=== PATIENT | male | born 1945 | race Caucasian/White ===

== ENCOUNTER 2017-11-27 17:14 | Observation (INO) | payer MEDICARE, OTHER ==
[~2017-11-27] VITALS: Ht 172.7 cm; Wt 77.1 kg
[~2017-11-27 17:14] MED LIST: ALL100T PO; BACL-63 PO; ESCI20TA51 PO; GAB400C PO; LEVE500T22 PO; METH-928 PO; METO-169 PO; OXYB15TA12 PO; PRAV20TA3 PO; SENN-58 PO; WARF3TAB22 PO
[2017-11-27 20:55] LABS: Basophils # (auto) 0.1 uL; Basophils % (auto) 0.7 % (0.0-2.0); Eosinophils # (auto) 0.6 uL; Eosinophils % (auto) 5.9 % (0.0-7.0); Hemoglobin 10.3 g/dL (13.5-17.5); Lymphocytes # (auto) 1.5 uL; Lymphocytes % (auto) 15.1 % (10.0-50.0); Mean Corpuscular Hemoglobin 28.9 pg (28.0-32.0); Mean Corpuscular Hgb Conc. 33.3 g/dL (32.0-36.0); Mean Corpuscular Volume 86.8 fL (80.0-100.0); Monocytes # (auto) 0.7 uL; Monocytes % (auto) 6.8 % (0.0-12.0); Neutrophils # (auto) 6.9 uL; Neutrophils % (auto) 71.5 % (37.0-80.0); Platelet Count (auto) 193 10^3/uL (140-450); Red Blood Cells 3.57 10^6/uL (4.5-5.90); Red Cell Distribution Width 16.6 % (11.8-14.3); White Blood Cell 9.6 10^3/uL (4.4-10.8)
[2017-11-27 21:03] LABS: INR 2.07 (0.9-1.15); Partial Thromboplastin Time 45.4 sec (22.64-33.71); Prothrombin Time 22.7 sec (9.37-12.3)
[2017-11-27 21:10] LABS: Albumin 2.3 g/dL (3.4-5.0); BUN/Creatinine Ratio 18.7; Bilirubin, Total 0.3 mg/dL (0.2-1.0); Calcium 8.3 mg/dL (8.5-10.1); Magnesium 2.3 mg/dL (1.6-2.6); Total Protein 6.3 g/dL (6.4-8.2)
[2017-11-27 21:23] LABS: Potassium 2.9 mmol/L (3.5-5.1)
[2017-11-27] MEDS ORDERED: POTASSIUM CHL 10% (20 MEQ/15ML) 15ml ORAL SOLN GT ONE (21:30)
[2017-11-27] MEDS ORDERED: SODIUM CHLORIDE 0.9% 1,000 ML IV ONE (21:30)
[2017-11-28 00:15] VITALS: BP 100/63
== END 2017-11-28 00:27 | disposition home or self-care (01) | DRG 310 ==
LOC: EDBD 17:14 → ER 17:19 → OVERFLOW 20:27 → ER 11-28 00:27
PROVIDERS: ADMIT Family Medicine; ATTEND Family Medicine
DX: I48.2 Chronic atrial fibrillation (principal); I11.0 Hypertensive heart disease with heart failure; I50.9 Heart failure, unspecified; E78.5 Hyperlipidemia, unspecified; E11.9 Type 2 diabetes mellitus without complications; E87.6 Hypokalemia; D64.9 Anemia, unspecified; M79.605 Pain in left leg; Z86.73 Personal history of transient ischemic attack (TIA), and cerebral infarction without residual deficits; F41.9 Anxiety disorder, unspecified; F32.9 Major depressive disorder, single episode, unspecified; Z87.440 Personal history of urinary (tract) infections
CPT/HCPCS: 36415; 72192; 73562; 80053; 83735; 85025; 85610; 85730; 93005; 93971; 96360; 99285; G0378; J7030

== ENCOUNTER 2018-04-28 09:54 | Inpatient (IN) | payer MEDICARE, OTHER ==
[~2018-04-28] VITALS: Ht 172.7 cm; Wt 77.3 kg
[2018-04-28] MEDS ORDERED: SODIUM CHLORIDE 0.9% 1,000 ML IV ONE ×2 (10:00→12:45)
[2018-04-28] MEDS: SODIUM CHLORIDE 0.9% 1,000 ML IV ONE (10:03)
[2018-04-28] MEDS ORDERED: cefTRIAXone 1GM/10ml IVPUSH 10 ML IV ONE (10:15)
[2018-04-28 10:38] LABS: Basophils # (auto) 0.1 uL; Basophils % (auto) 0.3 % (0.0-2.0); Eosinophils # (auto) 0 uL; Hematocrit 38.2 % (41.0-53.0); Hemoglobin 12.1 g/dL (13.5-17.5); Lymphocytes % (auto) 5.1 % (10.0-50.0); Mean Corpuscular Hemoglobin 27.4 pg (28.0-32.0); Mean Corpuscular Hgb Conc. 31.8 g/dL (32.0-36.0); Mean Corpuscular Volume 86.1 fL (80.0-100.0); Monocytes # (auto) 1.2 uL; Neutrophils # (auto) 17.4 uL; Neutrophils % (auto) 88.6 % (37.0-80.0); Platelet Count (auto) 147 10^3/uL (140-450); Red Blood Cells 4.44 10^6/uL (4.5-5.90); Red Cell Distribution Width 16.3 % (11.8-14.3); White Blood Cell 19.6 10^3/uL (4.4-10.8)
[2018-04-28 10:58] LABS: Lactic Acid w/Reflex 2.3 mmol/L (0.4-2.0)
[2018-04-28 11:04] LABS: INR 1.53 (0.9-1.15)
[2018-04-28 11:07] LABS: Albumin 2.4 g/dL (3.4-5.0); BUN/Creatinine Ratio 12.6; Bilirubin, Total 0.9 mg/dL (0.2-1.0); Calcium 8.1 mg/dL (8.5-10.1); Total Protein 6.1 g/dL (6.4-8.2)
[2018-04-28 11:09] LABS: Potassium 2.7 mmol/L (3.5-5.1)
[2018-04-28] MEDS: POTASSIUM CHL 20MEQ/100ML 100 ML IV SCH ×3 (11:55→15:47)
[2018-04-28 12:44] LABS: Urine Blood 1+ /uL (Negative); Urine Mucus MANY (None Seen); Urine WBC 17516 /hpf (0 - 3)
[2018-04-28] MEDS ORDERED: NITROGLYCERIN 0.4 MG SL TAB SL PRN (12:45)
[2018-04-28] MEDS ORDERED: MORPHINE SULF INJ 2 MG/ML SYRINGE 1ML IV PRN (12:45)
[2018-04-28 12:47] LABS: Urine Bacteria MOD /hpf (None Seen); Urine Specific Gravity 1.018 (1.001-1.035)
[2018-04-28 13:06] LABS: Alcohol, Urine < 3.0 mg/dL (0-5); Amphetamine Screen, Urine NEGATIVE (NEGATIVE); Barbiturate Scree,Urine NEGATIVE (NEGATIVE); Benzodiazephine Screen, Urine NEGATIVE (NEGATIVE); Cannabinoid Screen, Urine NEGATIVE (NEGATIVE); Cocaine Screen, Urine NEGATIVE (NEGATIVE); Opiate Scree,Urine POSITIVE (NEGATIVE); Phencyclidine Screen, Urine NEGATIVE (NEGATIVE)
[2018-04-28] MEDS: ENOXAPARIN SOD 30 MG/0.3 ML SYRINGE SC SCH (13:20)
[2018-04-28] MEDS ORDERED: NOREPINEPHRINE 8 MG/250ML KIT 250 ML IV ONE (14:19)
[2018-04-28] MEDS: NOREPINEPHRINE 8 MG/250ML KIT 250 ML IV SCH (14:21)
[2018-04-28] MEDS ORDERED: VANCOMYCIN PER PHARMACY 0 MG IV SCH (14:45)
[2018-04-28] MEDS ORDERED: SODIUM CHLORIDE 0.9% 1,000 ML IV SCH (14:45)
[2018-04-28] MEDS: PIPERACILLIN-TAZOB 2.25GM 50 ML IV SCH ×2 (15:47→21:53)
[2018-04-28] MEDS ORDERED: VANCOMYCIN 1GM/250ML 250 ML IV SCH (16:00)
[2018-04-28] MEDS ORDERED: FUROSEMIDE 20 MG/2 ML VIAL IV ONE (16:15)
[2018-04-28] MEDS ORDERED: ACETAMINOPHEN 650 MG RECT SUPP PR ONE ×2 (18:00→21:45)
[2018-04-28] MEDS ORDERED: PIPERACILLIN-TAZOB 2.25GM 50 ML IV SCH (18:00)
[2018-04-28 20:13] LABS: Protein, Urine 502.1 mg/dL (0.0-11.9)
[2018-04-28 23:00] VITALS: BP 126/72
[2018-04-29] MEDS: PIPERACILLIN-TAZOB 2.25GM 50 ML IV SCH ×4 (03:20→21:20)
[2018-04-29] MEDS: IPRATROPIUM BROM 0.5 MG/2.5ML INH SOL NEB SCH ×4 (07:31→17:39)
[2018-04-29] MEDS: ALBUTEROL SULF 2.5 MG/0.5ML(0.5%) NEB SOLN NEB SCH ×4 (07:31→17:39)
[2018-04-29 07:59] LABS: Basophils # (auto) 0 uL; Basophils % (auto) 0.2 % (0.0-2.0); Eosinophils # (auto) 0 uL; Eosinophils % (auto) 0.1 % (0.0-7.0); Hematocrit 38.4 % (41.0-53.0); Hemoglobin 12.2 g/dL (13.5-17.5); Lymphocytes # (auto) 0.9 uL; Lymphocytes % (auto) 3.9 % (10.0-50.0); Mean Corpuscular Hemoglobin 27.3 pg (28.0-32.0); Mean Corpuscular Hgb Conc. 31.7 g/dL (32.0-36.0); Mean Corpuscular Volume 86.3 fL (80.0-100.0); Monocytes # (auto) 0.7 uL; Monocytes % (auto) 3.1 % (0.0-12.0); Neutrophils # (auto) 21.9 uL; Neutrophils % (auto) 92.7 % (37.0-80.0); Platelet Count (auto) 142 10^3/uL (140-450); Red Blood Cells 4.45 10^6/uL (4.5-5.90); Red Cell Distribution Width 17.2 % (11.8-14.3); White Blood Cell 23.6 10^3/uL (4.4-10.8)
[2018-04-29 08:18] LABS: Phosphorus 3.4 mg/dL (2.5-4.90)
[2018-04-29 08:19] LABS: Albumin 2.5 g/dL (3.4-5.0); BUN/Creatinine Ratio 14.7; Bilirubin, Total 1.2 mg/dL (0.2-1.0); Calcium 8.2 mg/dL (8.5-10.1); Potassium 3.3 mmol/L (3.5-5.1); Total Protein 6.3 g/dL (6.4-8.2)
[2018-04-29] MEDS ORDERED: ENOXAPARIN SOD 40 MG/0.4 ML SYRINGE SC SCH (10:00)
[2018-04-29] MEDS: ENOXAPARIN SOD 30 MG/0.3 ML SYRINGE SC SCH (11:12)
[2018-04-29] MEDS: PANTOPRAZOLE 40 MG/10 ML VIAL IV SCH (11:12)
[2018-04-29] MEDS: SOD CHL 0.45% WITH 20MEQ KCL 1,000 ML IV SCH (13:41)
[2018-04-29] MEDS: NOREPINEPHRINE 8 MG/250ML KIT 250 ML IV SCH (14:30)
[2018-04-30] MEDS: SOD CHL 0.45% WITH 20MEQ KCL 1,000 ML IV SCH ×2 (01:48→10:54)
[2018-04-30] MEDS: PIPERACILLIN-TAZOB 2.25GM 50 ML IV SCH (02:22)
[2018-04-30 04:00] VITALS: BP 110/90
[2018-04-30 04:15] VITALS: BP 110/90
[2018-04-30] MEDS: ALBUTEROL SULF 2.5 MG/0.5ML(0.5%) NEB SOLN NEB SCH ×4 (06:23→19:21)
[2018-04-30] MEDS: IPRATROPIUM BROM 0.5 MG/2.5ML INH SOL NEB SCH ×4 (06:23→19:21)
[2018-04-30 08:00] VITALS: BP 104/73
[2018-04-30 08:09] LABS: Albumin 2.5 g/dL (3.4-5.0); BUN/Creatinine Ratio 18.6; Calcium 8.4 mg/dL (8.5-10.1); Total Protein 6.7 g/dL (6.4-8.2)
[2018-04-30 08:12] LABS: Potassium 2.9 mmol/L (3.5-5.1)
[2018-04-30 08:48] LABS: Basophils # (auto) 0.1 uL; Basophils % (auto) 0.5 % (0.0-2.0); Eosinophils # (auto) 0.3 uL; Eosinophils % (auto) 1.9 % (0.0-7.0); Hematocrit 38.5 % (41.0-53.0); Hemoglobin 12.4 g/dL (13.5-17.5); Lymphocytes # (auto) 0.7 uL; Lymphocytes % (auto) 5.3 % (10.0-50.0); Mean Corpuscular Hemoglobin 28.3 pg (28.0-32.0); Mean Corpuscular Hgb Conc. 32.2 g/dL (32.0-36.0); Monocytes # (auto) 0.8 uL; Monocytes % (auto) 5.7 % (0.0-12.0); Neutrophils # (auto) 12.2 uL; Neutrophils % (auto) 86.6 % (37.0-80.0); Platelet Count (auto) 111 10^3/uL (140-450); Red Blood Cells 4.37 10^6/uL (4.5-5.90); Red Cell Distribution Width 17.4 % (11.8-14.3); White Blood Cell 14.1 10^3/uL (4.4-10.8)
[2018-04-30] MEDS ORDERED: MEROPENEM 1gm/20ml IVPUSH 20 ML IV ONE (10:15)
[2018-04-30] MEDS: PANTOPRAZOLE 40 MG/10 ML VIAL IV SCH (10:53)
[2018-04-30] MEDS: ENOXAPARIN SOD 30 MG/0.3 ML SYRINGE SC SCH (10:53)
[2018-04-30] MEDS: POTASSIUM CHL 20MEQ/100ML 100 ML IV SCH ×2 (10:53→12:34)
[2018-04-30 11:50] VITALS: BP 120/87
[2018-04-30] MEDS ORDERED: METOPROLOL TARTRATE 1MG/1ML-5ML VIAL IV ONE (12:30)
[2018-04-30] MEDS ORDERED: MEROPENEM 1gm/20ml IVPUSH 20 ML IV SCH (14:00)
[2018-04-30] MEDS ORDERED: LIDOCAINE 1% (LOCAL ANESTH.) PF 5ml SDV ID ONE (15:30)
[2018-04-30 15:50] VITALS: BP 128/83
[2018-04-30] MEDS: METOPROLOL TARTRATE 1MG/1ML-5ML VIAL IV SCH (17:18)
[2018-04-30 19:53] VITALS: BP 108/65
[2018-04-30] MEDS: MEROPENEM 1gm/20ml IVPUSH 20 ML IV SCH (22:00)
[2018-04-30] MEDS: SODIUM CHLOR 0.9% PF (SALINE LOCK) 10ML VIAL/SYR IV SCH (22:00)
[2018-05-01] VITALS: BP 102/68
[2018-05-01] MEDS: SOD CHL 0.45% WITH 20MEQ KCL 1,000 ML IV SCH (01:54)
[2018-05-01 04:00] VITALS: BP 126/70
[2018-05-01] MEDS: METOPROLOL TARTRATE 1MG/1ML-5ML VIAL IV SCH ×4 (05:34→18:39)
[2018-05-01 05:50] LABS: Basophils # (auto) 0 uL; Basophils % (auto) 0.4 % (0.0-2.0); Eosinophils # (auto) 0.1 uL; Eosinophils % (auto) 0.5 % (0.0-7.0); Hematocrit 33.2 % (41.0-53.0); Hemoglobin 10.9 g/dL (13.5-17.5); Lymphocytes # (auto) 0.8 uL; Mean Corpuscular Hemoglobin 28.6 pg (28.0-32.0); Mean Corpuscular Hgb Conc. 32.9 g/dL (32.0-36.0); Mean Corpuscular Volume 87.1 fL (80.0-100.0); Monocytes # (auto) 0.6 uL; Neutrophils # (auto) 11.4 uL; Neutrophils % (auto) 88.1 % (37.0-80.0); Nucleated Red Blood Cells % 0.1 %; Platelet Count (auto) 116 10^3/uL (140-450); Red Blood Cells 3.81 10^6/uL (4.5-5.90); Red Cell Distribution Width 16.8 % (11.8-14.3); White Blood Cell 12.9 10^3/uL (4.4-10.8)
[2018-05-01] MEDS: ALBUTEROL SULF 2.5 MG/0.5ML(0.5%) NEB SOLN NEB SCH ×4 (05:53→19:38)
[2018-05-01] MEDS: IPRATROPIUM BROM 0.5 MG/2.5ML INH SOL NEB SCH ×4 (05:53→19:39)
[2018-05-01 06:10] LABS: Albumin 2.3 g/dL (3.4-5.0); Calcium 8.5 mg/dL (8.5-10.1); Potassium 3.3 mmol/L (3.5-5.1)
[2018-05-01 06:12] LABS: BUN/Creatinine Ratio 23.5
[2018-05-01 06:14] LABS: Total Protein 6.1 g/dL (6.4-8.2)
[2018-05-01] MEDS: MEROPENEM 1gm/20ml IVPUSH 20 ML IV SCH ×2 (10:01→22:10)
[2018-05-01] MEDS: ENOXAPARIN SOD 30 MG/0.3 ML SYRINGE SC SCH (10:02)
[2018-05-01] MEDS: PANTOPRAZOLE 40 MG/10 ML VIAL IV SCH (10:02)
[2018-05-01] MEDS: SODIUM CHLOR 0.9% PF (SALINE LOCK) 10ML VIAL/SYR IV SCH ×2 (10:03→22:10)
[2018-05-01 12:00] VITALS: BP 124/71
[2018-05-01] MEDS ORDERED: D5W/SOD CHL 0.45% 1,000 ML IV SCH (12:00)
[2018-05-01] MEDS ORDERED: POTASSIUM CHL 20 Meq TABLET PO ONE (13:30)
[2018-05-01 16:00] VITALS: BP 120/72
[2018-05-01] MEDS: POTASSIUM CHL 20MEQ/100ML 100 ML IV SCH ×2 (16:58→19:29)
[2018-05-01] MEDS: D5W/SOD CHL 0.45%/KCL 20MEQ 1,000 ML IV SCH ×2 (16:59→22:11)
[2018-05-01 19:46] VITALS: BP 118/72
[2018-05-02] VITALS (7 sets, daily range): BP systolic 91–144; BP diastolic 61–98
[2018-05-02] MEDS: METOPROLOL TARTRATE 1MG/1ML-5ML VIAL IV SCH ×5 (00:46→18:00)
[2018-05-02] MEDS: D5W/SOD CHL 0.45%/KCL 20MEQ 1,000 ML IV SCH (05:51)
[2018-05-02 06:10] LABS: Basophils # (auto) 0.1 uL; Basophils % (auto) 0.6 % (0.0-2.0); Eosinophils # (auto) 0.1 uL; Eosinophils % (auto) 1.3 % (0.0-7.0); Hematocrit 33.8 % (41.0-53.0); Hemoglobin 11.3 g/dL (13.5-17.5); Lymphocytes # (auto) 0.8 uL; Lymphocytes % (auto) 7.3 % (10.0-50.0); Mean Corpuscular Hemoglobin 28.6 pg (28.0-32.0); Mean Corpuscular Hgb Conc. 33.4 g/dL (32.0-36.0); Mean Corpuscular Volume 85.6 fL (80.0-100.0); Monocytes # (auto) 0.7 uL; Monocytes % (auto) 6.9 % (0.0-12.0); Neutrophils # (auto) 8.9 uL; Neutrophils % (auto) 83.9 % (37.0-80.0); Nucleated Red Blood Cells % 0.1 %; Platelet Count (auto) 107 10^3/uL (140-450); Red Blood Cells 3.95 10^6/uL (4.5-5.90); Red Cell Distribution Width 16.9 % (11.8-14.3); White Blood Cell 10.6 10^3/uL (4.4-10.8)
[2018-05-02] MEDS: IPRATROPIUM BROM 0.5 MG/2.5ML INH SOL NEB SCH ×4 (06:27→20:06)
[2018-05-02] MEDS: ALBUTEROL SULF 2.5 MG/0.5ML(0.5%) NEB SOLN NEB SCH ×4 (06:27→20:08)
[2018-05-02 06:31] LABS: Albumin 2.3 g/dL (3.4-5.0); Calcium 8.5 mg/dL (8.5-10.1)
[2018-05-02] MEDS ORDERED: VANCOMYCIN PER PHARMACY 0 MG IV SCH (10:00)
[2018-05-02] MEDS: PANTOPRAZOLE 40 MG/10 ML VIAL IV SCH (10:03)
[2018-05-02] MEDS: ENOXAPARIN SOD 30 MG/0.3 ML SYRINGE SC SCH (10:03)
[2018-05-02] MEDS: MEROPENEM 1gm/20ml IVPUSH 20 ML IV SCH ×2 (10:03→21:51)
[2018-05-02] MEDS: SODIUM CHLOR 0.9% PF (SALINE LOCK) 10ML VIAL/SYR IV SCH ×2 (10:03→21:29)
[2018-05-02] MEDS ORDERED: VANCOMYCIN 1GM/250ML 250 ML IV ONE (11:00)
[2018-05-02] MEDS: SOD CHL 0.45% 1,000 ML IV SCH ×2 (11:31→21:30)
[2018-05-02] MEDS ORDERED: PPN PER PHARMACY 0 ML IV SCH (17:45)
[2018-05-02] MEDS ORDERED: DEXTROSE (50%) 50ML SYRG IV SCH (18:00)
[2018-05-02] MEDS ORDERED: ACCU-CHEK COMFORT CURVE STRIP VI SCH (18:00)
[2018-05-02] MEDS ORDERED: InsuLIN REG 1unit/0.01ml Soln (100units/ml) SC SCH (18:00)
[2018-05-02 18:38] LABS: Magnesium 1.7 mg/dL (1.6-2.6); Phosphorus 2.5 mg/dL (2.5-4.90)
[2018-05-02] MEDS: CLINIMIX PER PHARMACY IV NR ×2 (19:34→23:00)
[2018-05-02] MEDS: ACCU-CHEK COMFORT CURVE STRIP VI SCH (19:34)
[2018-05-02] MEDS: InsuLIN REG 1unit/0.01ml Soln (100units/ml) SC SCH (20:00)
[2018-05-03] VITALS: BP 138/85
[2018-05-03] MEDS: METOPROLOL TARTRATE 1MG/1ML-5ML VIAL IV SCH ×2 (00:08→05:48)
[2018-05-03] MEDS: ACCU-CHEK COMFORT CURVE STRIP VI SCH ×4 (00:08→17:09)
[2018-05-03 04:00] VITALS: BP 119/73
[2018-05-03 05:29] LABS: Basophils # (auto) 0.1 uL; Eosinophils # (auto) 0.4 uL; Eosinophils % (auto) 4.5 % (0.0-7.0); Hematocrit 34.9 % (41.0-53.0); Hemoglobin 11.4 g/dL (13.5-17.5); Lymphocytes # (auto) 1.1 uL; Lymphocytes % (auto) 11.2 % (10.0-50.0); Mean Corpuscular Hemoglobin 28.1 pg (28.0-32.0); Mean Corpuscular Hgb Conc. 32.8 g/dL (32.0-36.0); Mean Corpuscular Volume 85.8 fL (80.0-100.0); Monocytes # (auto) 0.8 uL; Neutrophils # (auto) 7.3 uL; Neutrophils % (auto) 75.3 % (37.0-80.0); Platelet Count (auto) 119 10^3/uL (140-450); Red Blood Cells 4.07 10^6/uL (4.5-5.90); Red Cell Distribution Width 16.8 % (11.8-14.3); White Blood Cell 9.7 10^3/uL (4.4-10.8)
[2018-05-03 05:52] LABS: Albumin 2.3 g/dL (3.4-5.0); BUN/Creatinine Ratio 22.2; Calcium 8.5 mg/dL (8.5-10.1); Magnesium 1.9 mg/dL (1.6-2.6); Phosphorus 1.7 mg/dL (2.5-4.90); Potassium 3.4 mmol/L (3.5-5.1); Pre Albumin 5.6 mg/dL (20.0-40.0)
[2018-05-03] MEDS: InsuLIN REG 1unit/0.01ml Soln (100units/ml) SC SCH ×4 (05:52→23:49)
[2018-05-03] MEDS: IPRATROPIUM BROM 0.5 MG/2.5ML INH SOL NEB SCH ×4 (06:18→18:19)
[2018-05-03] MEDS: ALBUTEROL SULF 2.5 MG/0.5ML(0.5%) NEB SOLN NEB SCH ×4 (06:18→18:19)
[2018-05-03 08:00] VITALS: BP 130/73
[2018-05-03] MEDS ORDERED: BISACODYL 10 MG RECT SUPP PR ONE (10:00)
[2018-05-03] MEDS: ENOXAPARIN SOD 30 MG/0.3 ML SYRINGE SC SCH (10:29)
[2018-05-03] MEDS: MEROPENEM 1gm/20ml IVPUSH 20 ML IV SCH (10:29)
[2018-05-03] MEDS: SODIUM CHLOR 0.9% PF (SALINE LOCK) 10ML VIAL/SYR IV SCH ×2 (10:29→22:00)
[2018-05-03] MEDS: PANTOPRAZOLE 40 MG/10 ML VIAL IV SCH (10:29)
[2018-05-03] MEDS ORDERED: METOPROLOL SUCCINATE XL 50 MG TAB PO ONE (11:00)
[2018-05-03] MEDS ORDERED: DIGOXIN (250MCG/ML) 2 ML AMPULE IV ONE (11:00)
[2018-05-03] MEDS ORDERED: AMIODARONE HCL 200 MG TAB PO ONE (11:00)
[2018-05-03 11:53] VITALS: BP 115/77
[2018-05-03] MEDS ORDERED: POTASSIUM PHOSPHATE 44 MEQ in D5W 5% 250 ML IV ONE (13:00)
[2018-05-03] MEDS: SOD CHL 0.45% 1,000 ML IV SCH (13:05)
[2018-05-03 15:48] VITALS: BP 111/78
[2018-05-03] MEDS ORDERED: InsuLIN REG 1unit/0.01ml Soln (100units/ml) SC SCH (18:00)
[2018-05-03 19:42] VITALS: BP 105/72
[2018-05-03] MEDS: MEROPENEM 1GM IVPB 100 ML IV SCH (22:15)
[2018-05-03] MEDS: AMIODARONE HCL 200 MG TAB PO SCH (22:19)
[2018-05-03] MEDS: METOPROLOL SUCCINATE XL 50 MG TAB PO SCH (22:26)
[2018-05-03] MEDS ORDERED: VANCOMYCIN 1GM/250ML 250 ML IV SCH (23:00)
[2018-05-04] VITALS (8 sets, daily range): BP systolic 99–121; BP diastolic 60–77
[2018-05-04] MEDS ORDERED: PPN PER PHARMACY 0 ML IV SCH (00:30)
[2018-05-04] MEDS ORDERED: AMINO ACID INFUSION IN D10W 1,000 ML IV NR (00:30)
[2018-05-04] MEDS: SOD CHL 0.45% 1,000 ML IV SCH ×2 (02:15→16:44)
[2018-05-04] MEDS: ALBUTEROL SULF 2.5 MG/0.5ML(0.5%) NEB SOLN NEB SCH ×4 (05:54→18:36)
[2018-05-04] MEDS: IPRATROPIUM BROM 0.5 MG/2.5ML INH SOL NEB SCH ×4 (05:54→18:36)
[2018-05-04] MEDS: ACCU-CHEK COMFORT CURVE STRIP VI SCH ×4 (06:00→18:03)
[2018-05-04] MEDS: InsuLIN REG 1unit/0.01ml Soln (100units/ml) SC SCH ×3 (06:00→18:00)
[2018-05-04 06:07] LABS: Albumin 2.2 g/dL (3.4-5.0); BUN/Creatinine Ratio 27.5; Bilirubin, Total 0.7 mg/dL (0.2-1.0); Calcium 7.9 mg/dL (8.5-10.1); Magnesium 1.6 mg/dL (1.6-2.6); Phosphorus 1.9 mg/dL (2.5-4.90); Total Protein 5.8 g/dL (6.4-8.2)
[2018-05-04 06:11] LABS: Potassium 2.9 mmol/L (3.5-5.1)
[2018-05-04 07:42] LABS: Basophils # (auto) 0 uL; Basophils % (auto) 0.3 % (0.0-2.0); Eosinophils # (auto) 0.6 uL; Hematocrit 33.3 % (41.0-53.0); Hemoglobin 10.8 g/dL (13.5-17.5); Lymphocytes # (auto) 1.2 uL; Mean Corpuscular Hgb Conc. 32.5 g/dL (32.0-36.0); Mean Corpuscular Volume 86.2 fL (80.0-100.0); Monocytes # (auto) 1.1 uL; Neutrophils # (auto) 9.2 uL; Neutrophils % (auto) 75.7 % (37.0-80.0); Platelet Count (auto) 157 10^3/uL (140-450); Red Blood Cells 3.86 10^6/uL (4.5-5.90); Red Cell Distribution Width 16.9 % (11.8-14.3); White Blood Cell 12.1 10^3/uL (4.4-10.8)
[2018-05-04 07:55] LABS: Pre Albumin 7.1 mg/dL (20.0-40.0)
[2018-05-04] MEDS: MEROPENEM 1GM IVPB 100 ML IV SCH ×2 (09:36→21:02)
[2018-05-04] MEDS: PANTOPRAZOLE 40 MG/10 ML VIAL IV SCH (09:37)
[2018-05-04] MEDS: SODIUM CHLOR 0.9% PF (SALINE LOCK) 10ML VIAL/SYR IV SCH ×2 (09:37→21:07)
[2018-05-04] MEDS: POTASSIUM CHL 20MEQ/100ML 100 ML IV SCH ×3 (09:48→14:55)
[2018-05-04] MEDS ORDERED: POTASSIUM CHL 20MEQ/100ML 100 ML IV SCH (10:45)
[2018-05-04] MEDS: ENOXAPARIN SOD 40 MG/0.4 ML SYRINGE SC SCH (11:40)
[2018-05-04] MEDS: METOPROLOL SUCCINATE XL 50 MG TAB PO SCH ×2 (11:40→21:06)
[2018-05-04] MEDS: AMIODARONE HCL 200 MG TAB PO SCH ×2 (11:41→21:02)
[2018-05-04] MEDS ORDERED: TPN PER PHARMACY 0 ML IV SCH (12:15)
[2018-05-04] MEDS ORDERED: MAGNESIUM SULFATE 1GM/100ML 100 ML IV ONE (14:00)
[2018-05-04] MEDS ORDERED: POTASSIUM PHOSP 26.4MEQ(18MMOL) IN NS 100 ML IV ONE (14:00)
[2018-05-04] MEDS ORDERED: POTASSIUM ACETATE IV NR ×10 (20:00)
[2018-05-04] MEDS ORDERED: FAT EMULSION IV NR ×10 (20:00)
[2018-05-04] MEDS ORDERED: SODIUM ACETATE IV NR ×10 (20:00)
[2018-05-04] MEDS ORDERED: [UNRECOGNIZED DRUG - OTHER] IV NR ×10 (20:00)
[2018-05-04] MEDS: VANCOMYCIN 1GM/250ML 250 ML IV SCH (21:01)
[2018-05-05] VITALS (7 sets, daily range): BP systolic 99–143; BP diastolic 58–99
[2018-05-05] MEDS: ACCU-CHEK COMFORT CURVE STRIP VI SCH ×3 (00:28→12:35)
[2018-05-05] MEDS: TEMAZEPAM 15 MG CAP PO PRN (01:57)
[2018-05-05 05:38] LABS: Hematocrit 27.8 % (41.0-53.0); Hemoglobin 9.1 g/dL (13.5-17.5); Mean Corpuscular Hgb Conc. 32.7 g/dL (32.0-36.0); Mean Corpuscular Volume 85.8 fL (80.0-100.0); Platelet Count (auto) 149 10^3/uL (140-450); Red Blood Cells 3.24 10^6/uL (4.5-5.90); Red Cell Distribution Width 16.3 % (11.8-14.3); White Blood Cell 14.8 10^3/uL (4.4-10.8)
[2018-05-05 05:40] LABS: Band Neutrophils % (manual) 0; Basophils % (manual) 0 (0.0-2.0); Blast Cells 0; Metamyelocytes % 0; Myelocytes % 0; Promyelocytes % 0; Reactive Lymphocytes 0
[2018-05-05] MEDS: InsuLIN REG 1unit/0.01ml Soln (100units/ml) SC SCH ×3 (06:00→12:59)
[2018-05-05 06:01] LABS: Eosinophils % (manual) 1 (0-7); Lymphocytes % (manual) 10 (10.0-50.0); Monocytes % (manual) 9 (0-12)
[2018-05-05 06:02] LABS: Magnesium 1.6 mg/dL (1.6-2.6); Phosphorus 1.9 mg/dL (2.5-4.90)
[2018-05-05] MEDS: IPRATROPIUM BROM 0.5 MG/2.5ML INH SOL NEB SCH ×4 (06:05→18:45)
[2018-05-05] MEDS: ALBUTEROL SULF 2.5 MG/0.5ML(0.5%) NEB SOLN NEB SCH ×4 (06:05→18:45)
[2018-05-05 06:06] LABS: BUN/Creatinine Ratio 34.5; Calcium 7.1 mg/dL (8.5-10.1); Potassium 3.3 mmol/L (3.5-5.1)
[2018-05-05 06:09] LABS: Bilirubin, Total 0.6 mg/dL (0.2-1.0); Total Protein 5.2 g/dL (6.4-8.2)
[2018-05-05] MEDS: SOD CHL 0.45% 1,000 ML IV SCH ×3 (06:35→21:30)
[2018-05-05] MEDS ORDERED: POTASSIUM PHOSPHATE 44 MEQ in D5W 5% 250 ML IV ONE (09:15)
[2018-05-05] MEDS ORDERED: MAGNESIUM SULFATE 1GM/100ML 100 ML IV ONE (09:15)
[2018-05-05] MEDS ORDERED: POTASSIUM CHL 20MEQ/100ML 100 ML IV ONE (09:15)
[2018-05-05] MEDS: MEROPENEM 1GM IVPB 100 ML IV SCH ×2 (09:49→22:12)
[2018-05-05] MEDS: SODIUM CHLOR 0.9% PF (SALINE LOCK) 10ML VIAL/SYR IV SCH ×2 (09:50→22:12)
[2018-05-05] MEDS: PANTOPRAZOLE 40 MG/10 ML VIAL IV SCH (09:50)
[2018-05-05] MEDS: AMIODARONE HCL 200 MG TAB PO SCH ×2 (09:50→22:12)
[2018-05-05] MEDS: ENOXAPARIN SOD 40 MG/0.4 ML SYRINGE SC SCH (09:51)
[2018-05-05] MEDS: METOPROLOL SUCCINATE XL 50 MG TAB PO SCH ×2 (09:51→22:13)
[2018-05-05] MEDS ORDERED: ALB5IS NEB (11:17)
[2018-05-05] MEDS ORDERED: MER500PBAE IV (11:17)
[2018-05-05] MEDS ORDERED: FUROSEMIDE 40 MG/4 ML VIAL ONE (15:43)
[2018-05-05] MEDS ORDERED: TPN PER PHARMACY IV NR ×10 (20:00)
[2018-05-05] MEDS: VANCOMYCIN 1GM/250ML 250 ML IV SCH (21:00)
[2018-05-06] MEDS: TEMAZEPAM 15 MG CAP PO PRN ×2 (00:16→23:24)
[2018-05-06 05:00] VITALS: BP 114/55
[2018-05-06 05:21] LABS: Basophils # (auto) 0.1 uL; Eosinophils # (auto) 0.3 uL; Hemoglobin 8.1 g/dL (13.5-17.5); White Blood Cell 15.1 10^3/uL (4.4-10.8)
[2018-05-06 05:22] LABS: Basophils % (auto) 0.4 % (0.0-2.0); Hematocrit 24.4 % (41.0-53.0); Lymphocytes % (auto) 13.1 % (10.0-50.0); Mean Corpuscular Volume 84.8 fL (80.0-100.0); Monocytes # (auto) 1.6 uL; Monocytes % (auto) 10.5 % (0.0-12.0); Neutrophils # (auto) 11.1 uL; Platelet Count (auto) 166 10^3/uL (140-450); Red Blood Cells 2.87 10^6/uL (4.5-5.90); Red Cell Distribution Width 16.3 % (11.8-14.3)
[2018-05-06] MEDS: ALBUTEROL SULF 2.5 MG/0.5ML(0.5%) NEB SOLN NEB SCH ×4 (07:00→18:43)
[2018-05-06] MEDS: IPRATROPIUM BROM 0.5 MG/2.5ML INH SOL NEB SCH ×4 (07:00→18:43)
[2018-05-06 09:00] VITALS: BP 122/89
[2018-05-06] MEDS: PANTOPRAZOLE 40 MG/10 ML VIAL IV SCH (10:00)
[2018-05-06] MEDS: METOPROLOL SUCCINATE XL 50 MG TAB PO SCH ×2 (10:00→21:53)
[2018-05-06] MEDS: AMIODARONE HCL 200 MG TAB PO SCH ×2 (10:00→21:52)
[2018-05-06] MEDS: ENOXAPARIN SOD 40 MG/0.4 ML SYRINGE SC SCH (10:01)
[2018-05-06] MEDS: SODIUM CHLOR 0.9% PF (SALINE LOCK) 10ML VIAL/SYR IV SCH ×2 (10:01→21:53)
[2018-05-06] MEDS: MEROPENEM 1GM IVPB 100 ML IV SCH ×2 (10:02→21:52)
[2018-05-06 13:00] VITALS: BP 128/75
[2018-05-06] MEDS ORDERED: TPN PER PHARMACY 0 ML IV SCH (14:00)
[2018-05-06 15:24] LABS: Urine Bacteria NONE SEEN /hpf (None Seen); Urine Blood 2+ /uL (Negative); Urine Budding Yeast FEW /hpf (None Seen); Urine Mucus FEW (None Seen); Urine Specific Gravity 1.013 (1.001-1.035); Urine WBC 119 /hpf (0 - 3)
[2018-05-06 15:34] LABS: BUN/Creatinine Ratio 26.4; Calcium 7.2 mg/dL (8.5-10.1)
[2018-05-06 15:35] LABS: Magnesium 1.8 mg/dL (1.6-2.6); Phosphorus 2.4 mg/dL (2.5-4.90)
[2018-05-06 15:38] LABS: Potassium 2.8 mmol/L (3.5-5.1)
[2018-05-06] MEDS ORDERED: POTASSIUM PHOSPHATE 44 MEQ in D5W 5% 250 ML IV ONE (15:45)
[2018-05-06] MEDS ORDERED: POTASSIUM CHL 20MEQ/100ML 100 ML IV SCH (15:45)
[2018-05-06 16:50] VITALS: BP 128/85
[2018-05-06] MEDS ORDERED: CLINIMIX PER PHARMACY IV NR ×3 (20:00)
[2018-05-06] MEDS ORDERED: DEXTROSE (50%) 50ML SYRG IV SCH (20:00)
[2018-05-06] MEDS: SOD CHL 0.45% 1,000 ML IV SCH (20:16)
[2018-05-06] MEDS: VANCOMYCIN 1GM/250ML 250 ML IV SCH (20:55)
[2018-05-06 21:33] VITALS: BP 132/68
[2018-05-06] MEDS: ACCU-CHEK COMFORT CURVE STRIP VI SCH (23:24)
[2018-05-06] MEDS: InsuLIN REG 1unit/0.01ml Soln (100units/ml) SC SCH (23:48)
[2018-05-07 04:44] VITALS: BP 139/97
[2018-05-07] MEDS: InsuLIN REG 1unit/0.01ml Soln (100units/ml) SC SCH ×4 (06:00→23:36)
[2018-05-07] MEDS: ACCU-CHEK COMFORT CURVE STRIP VI SCH ×4 (06:09→23:35)
[2018-05-07] MEDS: IPRATROPIUM BROM 0.5 MG/2.5ML INH SOL NEB SCH ×4 (06:51→19:43)
[2018-05-07] MEDS: ALBUTEROL SULF 2.5 MG/0.5ML(0.5%) NEB SOLN NEB SCH ×4 (06:51→19:43)
[2018-05-07 07:36] LABS: Hemoglobin 7.6 g/dL (13.5-17.5)
[2018-05-07 07:40] LABS: Hematocrit 22.4 % (41.0-53.0); Mean Corpuscular Hemoglobin 28.6 pg (28.0-32.0); Mean Corpuscular Hgb Conc. 33.8 g/dL (32.0-36.0); Mean Corpuscular Volume 84.6 fL (80.0-100.0); Platelet Count (auto) 206 10^3/uL (140-450); Red Blood Cells 2.65 10^6/uL (4.5-5.90); Red Cell Distribution Width 16.3 % (11.8-14.3)
[2018-05-07 07:46] LABS: Basophils % (manual) 0 (0.0-2.0); Blast Cells 0; Myelocytes % 0; Promyelocytes % 0; Reactive Lymphocytes 0
[2018-05-07 07:58] LABS: Albumin 2.3 g/dL (3.4-5.0); BUN/Creatinine Ratio 21.4; Bilirubin, Total 0.7 mg/dL (0.2-1.0); Calcium 7.4 mg/dL (8.5-10.1); Magnesium 1.9 mg/dL (1.6-2.6); Phosphorus 3.7 mg/dL (2.5-4.90); Potassium 3.5 mmol/L (3.5-5.1)
[2018-05-07 08:19] LABS: Band Neutrophils % (manual) 1; Eosinophils % (manual) 7 (0-7); Lymphocytes % (manual) 18 (10.0-50.0); Metamyelocytes % 1; Monocytes % (manual) 8 (0-12)
[2018-05-07 09:00] VITALS: BP 133/86
[2018-05-07] MEDS ORDERED: POTASSIUM CHL 20MEQ/100ML 100 ML IV ONE (09:30)
[2018-05-07] MEDS: PANTOPRAZOLE 40 MG/10 ML VIAL IV SCH (10:02)
[2018-05-07] MEDS: ENOXAPARIN SOD 40 MG/0.4 ML SYRINGE SC SCH (10:03)
[2018-05-07] MEDS: AMIODARONE HCL 200 MG TAB PO SCH ×2 (10:03→21:25)
[2018-05-07] MEDS: METOPROLOL SUCCINATE XL 50 MG TAB PO SCH ×3 (10:03→21:58)
[2018-05-07] MEDS: SODIUM CHLOR 0.9% PF (SALINE LOCK) 10ML VIAL/SYR IV SCH ×2 (10:04→22:00)
[2018-05-07] MEDS: MEROPENEM 1GM IVPB 100 ML IV SCH ×2 (10:10→21:23)
[2018-05-07 12:12] VITALS: BP 133/86
[2018-05-07 13:00] VITALS: BP 132/76
[2018-05-07 15:02] LABS: % Iron Saturation 19.3 % (20-55)
[2018-05-07 16:00] LABS: Hematocrit 25.8 % (41.0-53.0); Hemoglobin 8.6 g/dL (13.5-17.5); Mean Corpuscular Hemoglobin 28.3 pg (28.0-32.0); Mean Corpuscular Hgb Conc. 33.3 g/dL (32.0-36.0); Mean Corpuscular Volume 85.1 fL (80.0-100.0); Red Blood Cells 3.03 10^6/uL (4.5-5.90); Red Cell Distribution Width 16.3 % (11.8-14.3); White Blood Cell 18.9 10^3/uL (4.4-10.8)
[2018-05-07 17:00] VITALS: BP 146/89
[2018-05-07] MEDS ORDERED: VANCOMYCIN 500 MG in D5W 5% 100 ML IV SCH (18:00)
[2018-05-07] MEDS ORDERED: SODIUM ACETATE IV NR ×13 (20:00)
[2018-05-07] MEDS ORDERED: POTASSIUM PHOSPHATE IV NR ×13 (20:00)
[2018-05-07] MEDS ORDERED: POTASSIUM ACETATE IV NR ×13 (20:00)
[2018-05-07] MEDS: SOD CHL 0.45% 1,000 ML IV SCH (20:00)
[2018-05-07] MEDS ORDERED: [UNRECOGNIZED DRUG - OTHER] IV NR ×13 (20:00)
[2018-05-07 21:35] VITALS: BP 96/53
[2018-05-07] MEDS: TEMAZEPAM 15 MG CAP PO PRN (21:59)
[2018-05-08 04:52] VITALS: BP 137/87
[2018-05-08] MEDS: ACCU-CHEK COMFORT CURVE STRIP VI SCH ×3 (05:06→17:38)
[2018-05-08] MEDS: InsuLIN REG 1unit/0.01ml Soln (100units/ml) SC SCH ×3 (05:06→17:38)
[2018-05-08 06:05] LABS: Basophils # (auto) 0.1 uL; Eosinophils # (auto) 0.7 uL; Hematocrit 23.2 % (41.0-53.0)
[2018-05-08 06:09] LABS: Basophils % (auto) 0.6 % (0.0-2.0); Eosinophils % (auto) 4.4 % (0.0-7.0); Hemoglobin 7.9 g/dL (13.5-17.5); Lymphocytes # (auto) 2.1 uL; Lymphocytes % (auto) 13.8 % (10.0-50.0); Mean Corpuscular Hemoglobin 29.1 pg (28.0-32.0); Mean Corpuscular Hgb Conc. 33.8 g/dL (32.0-36.0); Mean Corpuscular Volume 86.1 fL (80.0-100.0); Monocytes # (auto) 1.1 uL; Monocytes % (auto) 7.3 % (0.0-12.0); Neutrophils # (auto) 11.5 uL; Neutrophils % (auto) 73.9 % (37.0-80.0); Platelet Count (auto) 253 10^3/uL (140-450); Red Cell Distribution Width 16.6 % (11.8-14.3); White Blood Cell 15.5 10^3/uL (4.4-10.8)
[2018-05-08 06:34] LABS: Albumin 2.5 g/dL (3.4-5.0); BUN/Creatinine Ratio 21.7; Bilirubin, Total 0.8 mg/dL (0.2-1.0); Calcium 7.6 mg/dL (8.5-10.1); Phosphorus 1.8 mg/dL (2.5-4.90); Potassium 3.9 mmol/L (3.5-5.1); Total Protein 6.5 g/dL (6.4-8.2)
[2018-05-08] MEDS: ALBUTEROL SULF 2.5 MG/0.5ML(0.5%) NEB SOLN NEB SCH ×4 (06:49→19:10)
[2018-05-08] MEDS: IPRATROPIUM BROM 0.5 MG/2.5ML INH SOL NEB SCH ×4 (06:50→19:10)
[2018-05-08 08:00] VITALS: BP 129/83
[2018-05-08] MEDS: ENOXAPARIN SOD 40 MG/0.4 ML SYRINGE SC SCH (10:00)
[2018-05-08] MEDS: PANTOPRAZOLE 40 MG/10 ML VIAL IV SCH (10:35)
[2018-05-08] MEDS: METOPROLOL SUCCINATE XL 50 MG TAB PO SCH ×2 (10:35→21:21)
[2018-05-08] MEDS: AMIODARONE HCL 200 MG TAB PO SCH ×2 (10:35→21:20)
[2018-05-08] MEDS: MEROPENEM 1GM IVPB 100 ML IV SCH ×2 (10:35→21:19)
[2018-05-08] MEDS: SODIUM CHLOR 0.9% PF (SALINE LOCK) 10ML VIAL/SYR IV SCH ×2 (10:36→21:20)
[2018-05-08] MEDS ORDERED: SODIUM PHOSP 40 MEQ in D5W 5% 250 ML IV ONE (11:30)
[2018-05-08 13:47] VITALS: BP 130/71
[2018-05-08 17:08] VITALS: BP 122/78
[2018-05-08] MEDS ORDERED: [UNRECOGNIZED DRUG - OTHER] IV NR ×7 (20:00)
[2018-05-08] MEDS ORDERED: SODIUM ACETATE IV NR ×7 (20:00)
[2018-05-08] MEDS ORDERED: POTASSIUM ACETATE IV NR ×7 (20:00)
[2018-05-08] MEDS ORDERED: POTASSIUM PHOSPHATE IV NR ×7 (20:00)
[2018-05-08] MEDS: SOD CHL 0.45% 1,000 ML IV SCH (20:42)
[2018-05-08 21:33] VITALS: BP 124/69
[2018-05-09] MEDS: ACCU-CHEK COMFORT CURVE STRIP VI SCH ×5 (00:09→23:06)
[2018-05-09 04:40] VITALS: BP 132/78
[2018-05-09] MEDS: InsuLIN REG 1unit/0.01ml Soln (100units/ml) SC SCH ×5 (06:00→23:05)
[2018-05-09 06:41] LABS: Hematocrit 23.5 % (41.0-53.0); Hemoglobin 7.9 g/dL (13.5-17.5); Mean Corpuscular Hgb Conc. 33.7 g/dL (32.0-36.0); Platelet Count (auto) 317 10^3/uL (140-450); Red Blood Cells 2.73 10^6/uL (4.5-5.90); Red Cell Distribution Width 16.6 % (11.8-14.3); White Blood Cell 17.9 10^3/uL (4.4-10.8)
[2018-05-09] MEDS: IPRATROPIUM BROM 0.5 MG/2.5ML INH SOL NEB SCH ×4 (06:50→18:32)
[2018-05-09] MEDS: ALBUTEROL SULF 2.5 MG/0.5ML(0.5%) NEB SOLN NEB SCH ×4 (06:50→18:32)
[2018-05-09 06:56] LABS: Albumin 2.7 g/dL (3.4-5.0); BUN/Creatinine Ratio 24.3; Bilirubin, Total 0.9 mg/dL (0.2-1.0); Calcium 7.6 mg/dL (8.5-10.1); Magnesium 2.2 mg/dL (1.6-2.6); Potassium 3.9 mmol/L (3.5-5.1); Total Protein 6.6 g/dL (6.4-8.2)
[2018-05-09 07:08] LABS: Band Neutrophils % (manual) 0; Basophils % (manual) 0 (0.0-2.0); Blast Cells 0; Metamyelocytes % 0; Myelocytes % 0; Promyelocytes % 0; Reactive Lymphocytes 0
[2018-05-09] MEDS: VANCOMYCIN 500 MG in D5W 5% 100 ML IV SCH (07:13)
[2018-05-09 08:23] LABS: Eosinophils % (manual) 2 (0-7); Lymphocytes % (manual) 16 (10.0-50.0); Monocytes % (manual) 9 (0-12)
[2018-05-09 09:00] VITALS: BP 138/88
[2018-05-09] MEDS: PANTOPRAZOLE 40 MG/10 ML VIAL IV SCH (09:58)
[2018-05-09] MEDS: MEROPENEM 1GM IVPB 100 ML IV SCH ×2 (09:58→20:18)
[2018-05-09] MEDS: AMIODARONE HCL 200 MG TAB PO SCH ×2 (09:59→20:22)
[2018-05-09] MEDS: ENOXAPARIN SOD 40 MG/0.4 ML SYRINGE SC SCH (10:00)
[2018-05-09] MEDS: METOPROLOL SUCCINATE XL 50 MG TAB PO SCH ×2 (10:00→22:00)
[2018-05-09] MEDS: SODIUM CHLOR 0.9% PF (SALINE LOCK) 10ML VIAL/SYR IV SCH ×2 (10:00→20:22)
[2018-05-09] MEDS ORDERED: MORPHINE SULFATE 4 MG/ML SYR/VIAL IV PRN (10:30)
[2018-05-09] MEDS: HYDROcodone-ACET 5/325MG TAB PO PRN ×2 (11:27→18:55)
[2018-05-09] MEDS: ONDANSETRON HCL 4 MG/2 ML VIAL IV PRN ×2 (11:28→20:20)
[2018-05-09 13:40] VITALS: BP 93/61
[2018-05-09 16:54] VITALS: BP 110/66
[2018-05-09] MEDS ORDERED: CLINIMIX PER PHARMACY IV NR ×7 (20:00)
[2018-05-09] MEDS: SOD CHL 0.45% 1,000 ML IV SCH (20:18)
[2018-05-09] MEDS: MORPHINE SULFATE 4 MG/ML SYR/VIAL IV PRN (20:20)
[2018-05-09] MEDS: TEMAZEPAM 15 MG CAP PO PRN (20:20)
[2018-05-09 22:00] VITALS: BP 98/47
[2018-05-10] MEDS: MORPHINE SULFATE 4 MG/ML SYR/VIAL IV PRN (03:27)
[2018-05-10] MEDS: HYDROcodone-ACET 5/325MG TAB PO PRN ×3 (04:03→22:07)
[2018-05-10 05:00] VITALS: BP 118/56
[2018-05-10] MEDS: InsuLIN REG 1unit/0.01ml Soln (100units/ml) SC SCH ×3 (05:33→16:58)
[2018-05-10] MEDS: ACCU-CHEK COMFORT CURVE STRIP VI SCH ×3 (05:33→16:58)
[2018-05-10 06:22] LABS: Red Cell Distribution Width 17.1 % (11.8-14.3)
[2018-05-10 06:24] LABS: Hematocrit 23.7 % (41.0-53.0); Mean Corpuscular Hemoglobin 29.4 pg (28.0-32.0); Mean Corpuscular Hgb Conc. 33.6 g/dL (32.0-36.0); Mean Corpuscular Volume 87.4 fL (80.0-100.0); Platelet Count (auto) 341 10^3/uL (140-450); Red Blood Cells 2.72 10^6/uL (4.5-5.90)
[2018-05-10] MEDS: ALBUTEROL SULF 2.5 MG/0.5ML(0.5%) NEB SOLN NEB SCH ×4 (06:33→19:03)
[2018-05-10] MEDS: IPRATROPIUM BROM 0.5 MG/2.5ML INH SOL NEB SCH ×4 (06:33→19:03)
[2018-05-10 06:37] LABS: Basophils % (manual) 0 (0.0-2.0); Blast Cells 0; Myelocytes % 0; Promyelocytes % 0; Reactive Lymphocytes 0
[2018-05-10 06:47] LABS: Albumin 2.6 g/dL (3.4-5.0); Bilirubin, Total 0.8 mg/dL (0.2-1.0); Calcium 7.8 mg/dL (8.5-10.1); Phosphorus 2.8 mg/dL (2.5-4.90); Potassium 4.2 mmol/L (3.5-5.1); Pre Albumin 15.5 mg/dL (20.0-40.0); Total Protein 6.5 g/dL (6.4-8.2)
[2018-05-10 08:25] LABS: Band Neutrophils % (manual) 1; Eosinophils % (manual) 4 (0-7); Lymphocytes % (manual) 8 (10.0-50.0); Metamyelocytes % 1; Monocytes % (manual) 7 (0-12)
[2018-05-10 08:34] VITALS: BP 119/63
[2018-05-10 09:02] VITALS: BP 119/63
[2018-05-10] MEDS: MEROPENEM 1GM IVPB 100 ML IV SCH ×2 (10:09→22:06)
[2018-05-10] MEDS: PANTOPRAZOLE 40 MG/10 ML VIAL IV SCH (10:11)
[2018-05-10] MEDS: SODIUM CHLOR 0.9% PF (SALINE LOCK) 10ML VIAL/SYR IV SCH ×2 (10:12→22:06)
[2018-05-10] MEDS: ENOXAPARIN SOD 40 MG/0.4 ML SYRINGE SC SCH (10:13)
[2018-05-10] MEDS: METOPROLOL SUCCINATE XL 50 MG TAB PO SCH ×2 (10:18→22:07)
[2018-05-10] MEDS: AMIODARONE HCL 200 MG TAB PO SCH ×2 (10:19→22:06)
[2018-05-10 12:18] VITALS: BP 144/74
[2018-05-10] MEDS: FLUCONAZOLE 100 MG TAB PO SCH (16:30)
[2018-05-10] MEDS: Ensure Enlive Chocolate 8oz Bottle PO SCH ×2 (16:30→22:06)
[2018-05-10 16:46] VITALS: BP 129/72
[2018-05-10] MEDS ORDERED: CALCIUM GLUC 4.65meq/50ml D5AE 50 ML IV ONE (18:00)
[2018-05-10] MEDS: VANCOMYCIN 500 MG in D5W 5% 100 ML IV SCH (19:24)
[2018-05-10] MEDS ORDERED: TPN PER PHARMACY IV NR ×9 (20:00)
[2018-05-10] MEDS: SOD CHL 0.45% 1,000 ML IV SCH (20:04)
[2018-05-10 21:49] VITALS: BP 100/62
[2018-05-10] MEDS: TEMAZEPAM 15 MG CAP PO PRN (22:08)
[2018-05-11] MEDS: MORPHINE SULFATE 4 MG/ML SYR/VIAL IV PRN (01:34)
[2018-05-11 05:04] VITALS: BP 124/69
[2018-05-11] MEDS: ALBUTEROL SULF 2.5 MG/0.5ML(0.5%) NEB SOLN NEB SCH ×4 (05:31→19:00)
[2018-05-11] MEDS: IPRATROPIUM BROM 0.5 MG/2.5ML INH SOL NEB SCH ×4 (05:31→19:10)
[2018-05-11] MEDS: Ensure Enlive Chocolate 8oz Bottle PO SCH ×3 (06:00→22:00)
[2018-05-11 06:24] LABS: Hemoglobin 7.4 g/dL (13.5-17.5); Mean Corpuscular Volume 87.4 fL (80.0-100.0)
[2018-05-11 06:28] LABS: Hematocrit 22.4 % (41.0-53.0); Mean Corpuscular Hemoglobin 28.9 pg (28.0-32.0); Mean Corpuscular Hgb Conc. 33.1 g/dL (32.0-36.0); Platelet Count (auto) 308 10^3/uL (140-450); Red Blood Cells 2.57 10^6/uL (4.5-5.90); Red Cell Distribution Width 17.9 % (11.8-14.3)
[2018-05-11 06:32] LABS: Basophils % (manual) 0 (0.0-2.0); Blast Cells 0; Metamyelocytes % 0; Myelocytes % 0; Promyelocytes % 0; Reactive Lymphocytes 0
[2018-05-11 06:42] LABS: Albumin 2.3 g/dL (3.4-5.0); BUN/Creatinine Ratio 25.5; Calcium 7.6 mg/dL (8.5-10.1); Potassium 4.3 mmol/L (3.5-5.1)
[2018-05-11 06:45] LABS: Bilirubin, Total 0.7 mg/dL (0.2-1.0); Total Protein 6.1 g/dL (6.4-8.2)
[2018-05-11 08:24] LABS: Band Neutrophils % (manual) 2; Eosinophils % (manual) 5 (0-7); Lymphocytes % (manual) 13 (10.0-50.0); Monocytes % (manual) 6 (0-12)
[2018-05-11 09:00] VITALS: BP 100/62
[2018-05-11] MEDS: METOPROLOL SUCCINATE XL 50 MG TAB PO SCH ×2 (10:00→22:12)
[2018-05-11] MEDS: PANTOPRAZOLE 40 MG/10 ML VIAL IV SCH (10:27)
[2018-05-11] MEDS: ENOXAPARIN SOD 40 MG/0.4 ML SYRINGE SC SCH ×2 (10:28→10:39)
[2018-05-11] MEDS: FLUCONAZOLE 100 MG TAB PO SCH (10:29)
[2018-05-11] MEDS: AMIODARONE HCL 200 MG TAB PO SCH ×2 (10:29→22:11)
[2018-05-11] MEDS: SODIUM CHLOR 0.9% PF (SALINE LOCK) 10ML VIAL/SYR IV SCH ×2 (10:30→22:11)
[2018-05-11] MEDS: MEROPENEM 1GM IVPB 100 ML IV SCH ×2 (10:32→22:11)
[2018-05-11 13:04] VITALS: BP 135/59
[2018-05-11] MEDS: HYDROcodone-ACET 5/325MG TAB PO PRN (14:50)
[2018-05-11 16:39] VITALS: BP 139/75
[2018-05-11] MEDS: SOD CHL 0.45% 1,000 ML IV SCH (21:44)
[2018-05-11 22:00] VITALS: BP 109/75
[2018-05-11] MEDS: TEMAZEPAM 15 MG CAP PO PRN (22:12)
[2018-05-12] MEDS: MORPHINE SULFATE 4 MG/ML SYR/VIAL IV PRN (00:52)
[2018-05-12 05:29] VITALS: BP 111/71
[2018-05-12] MEDS: IPRATROPIUM BROM 0.5 MG/2.5ML INH SOL NEB SCH ×4 (06:00→18:00)
[2018-05-12] MEDS: ALBUTEROL SULF 2.5 MG/0.5ML(0.5%) NEB SOLN NEB SCH ×4 (06:00→18:00)
[2018-05-12 06:23] LABS: Hemoglobin 7.1 g/dL (13.5-17.5)
[2018-05-12 06:26] LABS: Hematocrit 21.2 % (41.0-53.0); Mean Corpuscular Hemoglobin 29.6 pg (28.0-32.0); Mean Corpuscular Hgb Conc. 33.5 g/dL (32.0-36.0); Mean Corpuscular Volume 88.3 fL (80.0-100.0); Platelet Count (auto) 303 10^3/uL (140-450); Red Cell Distribution Width 18.1 % (11.8-14.3); White Blood Cell 14.4 10^3/uL (4.4-10.8)
[2018-05-12 06:35] LABS: Band Neutrophils % (manual) 0; Basophils % (manual) 0 (0.0-2.0); Blast Cells 0; Myelocytes % 0; Promyelocytes % 0; Reactive Lymphocytes 0
[2018-05-12 06:41] LABS: Albumin 2.3 g/dL (3.4-5.0); BUN/Creatinine Ratio 27.3; Bilirubin, Total 0.8 mg/dL (0.2-1.0); Calcium 7.5 mg/dL (8.5-10.1); Potassium 3.6 mmol/L (3.5-5.1); Total Protein 5.9 g/dL (6.4-8.2)
[2018-05-12] MEDS: VANCOMYCIN 500 MG in D5W 5% 100 ML IV SCH (06:51)
[2018-05-12 07:59] VITALS: BP 117/75
[2018-05-12 09:14] LABS: Eosinophils % (manual) 3 (0-7); Lymphocytes % (manual) 10 (10.0-50.0); Metamyelocytes % 1; Monocytes % (manual) 4 (0-12)
[2018-05-12] MEDS: METOPROLOL SUCCINATE XL 50 MG TAB PO SCH ×2 (09:34→22:00)
[2018-05-12] MEDS: AMIODARONE HCL 200 MG TAB PO SCH ×2 (09:34→20:30)
[2018-05-12] MEDS: PANTOPRAZOLE 40 MG/10 ML VIAL IV SCH (09:35)
[2018-05-12] MEDS: SODIUM CHLOR 0.9% PF (SALINE LOCK) 10ML VIAL/SYR IV SCH ×2 (09:35→20:30)
[2018-05-12] MEDS: MEROPENEM 1GM IVPB 100 ML IV SCH ×2 (09:35→20:29)
[2018-05-12] MEDS: FLUCONAZOLE 200MG/100ML 100 ML IV SCH (09:35)
[2018-05-12] MEDS: Ensure Enlive Chocolate 8oz Bottle PO SCH ×3 (09:35→20:30)
[2018-05-12 12:02] VITALS: BP 114/72
[2018-05-12 16:22] VITALS: BP 124/71
[2018-05-12] MEDS: SOD CHL 0.45% 1,000 ML IV SCH (20:29)
[2018-05-12] MEDS: HYDROcodone-ACET 5/325MG TAB PO PRN (20:30)
[2018-05-12] MEDS: TEMAZEPAM 15 MG CAP PO PRN (20:30)
[2018-05-12 21:57] VITALS: BP 116/64
[2018-05-13 05:00] VITALS: BP 113/67
[2018-05-13 05:47] LABS: Mean Corpuscular Hemoglobin 28.8 pg (28.0-32.0)
[2018-05-13 05:49] LABS: Hematocrit 21.7 % (41.0-53.0); Hemoglobin 7.1 g/dL (13.5-17.5); Mean Corpuscular Hgb Conc. 32.5 g/dL (32.0-36.0); Mean Corpuscular Volume 88.8 fL (80.0-100.0); Platelet Count (auto) 282 10^3/uL (140-450); Red Blood Cells 2.44 10^6/uL (4.5-5.90); Red Cell Distribution Width 18.4 % (11.8-14.3); White Blood Cell 11.9 10^3/uL (4.4-10.8)
[2018-05-13 05:50] LABS: Band Neutrophils % (manual) 0; Basophils % (manual) 0 (0.0-2.0); Blast Cells 0; Metamyelocytes % 0; Myelocytes % 0; Promyelocytes % 0; Reactive Lymphocytes 0
[2018-05-13] MEDS: Ensure Enlive Chocolate 8oz Bottle PO SCH ×2 (06:00→14:51)
[2018-05-13] MEDS: ALBUTEROL SULF 2.5 MG/0.5ML(0.5%) NEB SOLN NEB SCH (06:00)
[2018-05-13] MEDS: IPRATROPIUM BROM 0.5 MG/2.5ML INH SOL NEB SCH (06:00)
[2018-05-13 06:08] LABS: Potassium 3.7 mmol/L (3.5-5.1)
[2018-05-13 06:11] LABS: Albumin 2.2 g/dL (3.4-5.0); BUN/Creatinine Ratio 22.5; Calcium 7.7 mg/dL (8.5-10.1)
[2018-05-13 06:13] LABS: Bilirubin, Total 0.7 mg/dL (0.2-1.0); Total Protein 5.7 g/dL (6.4-8.2)
[2018-05-13 06:24] LABS: Eosinophils % (manual) 4 (0-7); Lymphocytes % (manual) 15 (10.0-50.0); Monocytes % (manual) 3 (0-12)
[2018-05-13 09:00] VITALS: BP 112/71
[2018-05-13] MEDS: FLUCONAZOLE 200MG/100ML 100 ML IV SCH (09:47)
[2018-05-13] MEDS: SODIUM CHLOR 0.9% PF (SALINE LOCK) 10ML VIAL/SYR IV SCH (09:47)
[2018-05-13] MEDS: PANTOPRAZOLE 40 MG/10 ML VIAL IV SCH (09:47)
[2018-05-13] MEDS: AMIODARONE HCL 200 MG TAB PO SCH (09:48)
[2018-05-13] MEDS: METOPROLOL SUCCINATE XL 50 MG TAB PO SCH (09:54)
[2018-05-13] MEDS: ENOXAPARIN SOD 40 MG/0.4 ML SYRINGE SC SCH (09:54)
[2018-05-13] MEDS: MEROPENEM 1GM IVPB 100 ML IV SCH (09:55)
[2018-05-13 12:24] VITALS: BP 116/72
[2018-05-13 12:52] VITALS: BP 116/72
[2018-05-13 13:00] VITALS: BP 116/72
== END 2018-05-13 14:36 | disposition home or self-care (01) | DRG 871 ==
LOC: EDBD 09:54 → ER 09:54 → TELE 09:55 → DOU IN ICU 04-30 03:33 → TELE-EAST 05-05 23:30
PROVIDERS: ADMIT Internal Medicine; ATTEND Internal Medicine
PROC: 02H633Z Insertion of Infusion Device into Right Atrium, Percutaneous Approach (ICD-10-PCS; principal; 2018-04-30)
PROC: 02HV33Z Insertion of Infusion Device into Superior Vena Cava, Percutaneous Approach (ICD-10-PCS; 2018-05-05)
DX: A41.9 Sepsis, unspecified organism (principal); L89.894 Pressure ulcer of other site, stage 4; G92 Toxic encephalopathy; R65.21 Severe sepsis with septic shock; N17.0 Acute kidney failure with tubular necrosis; J96.00 Acute respiratory failure, unspecified whether with hypoxia or hypercapnia; J18.9 Pneumonia, unspecified organism; I21.4 Non-ST elevation (NSTEMI) myocardial infarction; N39.0 Urinary tract infection, site not specified; I13.0 Hypertensive heart and chronic kidney disease with heart failure and stage 1 through stage 4 chronic kidney disease, or unspecified chronic kidney disease; E44.0 Moderate protein-calorie malnutrition; D68.69 Other thrombophilia; N13.6 Pyonephrosis; I69.354 Hemiplegia and hemiparesis following cerebral infarction affecting left non-dominant side; Z51.5 Encounter for palliative care; E87.6 Hypokalemia; N18.9 Chronic kidney disease, unspecified; G40.909 Epilepsy, unspecified, not intractable, without status epilepticus; Z16.12 Extended spectrum beta lactamase (ESBL) resistance; F17.200 Nicotine dependence, unspecified, uncomplicated; E78.5 Hyperlipidemia, unspecified; I48.91 Unspecified atrial fibrillation; E11.22 Type 2 diabetes mellitus with diabetic chronic kidney disease; I50.9 Heart failure, unspecified; B96.20 Unspecified Escherichia coli [E. coli] as the cause of diseases classified elsewhere; I70.0 Atherosclerosis of aorta; M10.9 Gout, unspecified; D64.9 Anemia, unspecified; G89.29 Other chronic pain; N31.9 Neuromuscular dysfunction of bladder, unspecified; N21.0 Calculus in bladder; B95.2 Enterococcus as the cause of diseases classified elsewhere; Z93.59 Other cystostomy status; Z82.3 Family history of stroke; Z74.01 Bed confinement status; Z88.2 Allergy status to sulfonamides; Z88.8 Allergy status to other drugs, medicaments and biological substances; L89.159 Pressure ulcer of sacral region, unspecified stage
CPT/HCPCS: 31720; 36415; 36569; 36600; 70450; 71045; 74176; 76775; 78707; 80048; 80053; 80202; 80307; 81001; 82040; 82270; 82570; 82805; 82962; 83540; 83550; 83605; 83735; 83880; 84100; 84132; 84146; 84156; 84300; 84478; 84484; 85007; 85025; 85027; 85610; 85652; 85730; 87040; 87070; 87077; 87081; 87086; 87088; 87186; 92610; 93005; 93306; 93971; 94640; 96361; 96365; 96375; 96379; 97110; 97116; 97163; 97530; 99291; A6257; C9113; J0610; J0696; J1450; J1815; J2185; J2405; J2543; J3480; J7060

== ENCOUNTER 2018-07-06 00:03 | Emergency (ER) | payer MEDICARE, OTHER ==
[~2018-07-06] VITALS: Ht 172.7 cm; Wt 77.1 kg
[~2018-07-06 00:03] MED LIST changes: +ALB5IS NEB
[2018-07-06 01:55] LABS: Basophils # (auto) 0.1 uL; Basophils % (auto) 0.5 % (0.0-2.0); Eosinophils # (auto) 0.1 uL; Eosinophils % (auto) 0.8 % (0.0-7.0); Hematocrit 29.3 % (41.0-53.0); Hemoglobin 9.2 g/dL (13.5-17.5); Lymphocytes # (auto) 0.7 uL; Lymphocytes % (auto) 5.5 % (10.0-50.0); Mean Corpuscular Hgb Conc. 31.5 g/dL (32.0-36.0); Mean Corpuscular Volume 88.8 fL (80.0-100.0); Monocytes # (auto) 0.8 uL; Neutrophils # (auto) 11.6 uL; Neutrophils % (auto) 87.2 % (37.0-80.0); Nucleated Red Blood Cells % 0.1 %; Platelet Count (auto) 133 10^3/uL (140-450); Red Cell Distribution Width 17.2 % (11.8-14.3); White Blood Cell 13.3 10^3/uL (4.4-10.8)
[2018-07-06 02:09] LABS: INR 1.32 (0.9-1.15); Partial Thromboplastin Time 32.4 sec (23.78-33.04); Prothrombin Time 13.9 sec (9.27-12.13)
[2018-07-06 02:14] LABS: BUN/Creatinine Ratio 16.9; Calcium 8.1 mg/dL (8.5-10.1); Magnesium 2.4 mg/dL (1.6-2.6)
[2018-07-06 02:19] LABS: Bilirubin, Total 0.6 mg/dL (0.2-1.0)
[2018-07-06] MEDS ORDERED: VANCOMYCIN 1GM/250ML 250 ML IV ONE (03:00)
[2018-07-06] MEDS ORDERED: cefTRIAXone 1GM/50ML D5W 50 ML IV ONE (03:00)
[2018-07-06] MEDS ORDERED: SODIUM CHLORIDE 0.9% 2,000 ML IV ONE (03:00)
[2018-07-06 03:59] LABS: Urine Bacteria MANY /hpf (None Seen); Urine Blood 2+ /uL (Negative); Urine WBC 3432 /hpf (0 - 3); Urine WBC Clumps PRESENT /hpf (None Seen)
[2018-07-06] MEDS ORDERED: ALBUMIN 5% 250 ML IV ONE (04:00)
[2018-07-06] MEDS ORDERED: POTASSIUM CHL 20MEQ/100ML 100 ML IV ONE (04:00)
[2018-07-06 04:01] LABS: Urine Specific Gravity 1.011 (1.001-1.035)
[2018-07-06] MEDS ORDERED: FUROSEMIDE 20 MG/2 ML VIAL IV ONE ×2 (08:30→10:30)
[2018-07-06] MEDS ORDERED: ALBUTEROL SULF 2.5 MG/0.5ML(0.5%) NEB SOLN NEB ONE (08:30)
[2018-07-06] MEDS ORDERED: IPRATROPIUM BROM 0.5 MG/2.5ML INH SOL NEB ONE (08:30)
[2018-07-06 10:24] VITALS: BP 99/68
== END 2018-07-06 10:34 | disposition home or self-care (01) ==
LOC: ER 00:03 → EDBD 00:03 → ER 10:34
DX: N39.0 Urinary tract infection, site not specified (principal); K59.00 Constipation, unspecified; I48.91 Unspecified atrial fibrillation; I50.9 Heart failure, unspecified; E11.9 Type 2 diabetes mellitus without complications; Z88.2 Allergy status to sulfonamides; Z86.73 Personal history of transient ischemic attack (TIA), and cerebral infarction without residual deficits; Z79.01 Long term (current) use of anticoagulants; Z79.899 Other long term (current) drug therapy
CPT/HCPCS: 36415; 51705; 71045; 74176; 80053; 81001; 83605; 83690; 83735; 84484; 85025; 85610; 85730; 87040; 87077; 87086; 87186; 93005; 94640; 94761; 96365; 96368; 96375; 99285; J0696; J1940; J3370; J3480; J7030; J7611; J7644; P9045